=== PATIENT | female | born 1960 | race Caucasian/White ===

== ENCOUNTER 2019-07-05 09:54 | Outpatient (CLI) | payer BC ==
--- NOTE | 2019-07-05 11:16 | ULT ---
EXAM: US Bladder DATE: 07/05/2019 12:00 AM INDICATION: History of urinary urgency COMPARISON: None. FINDING: The prevoid bladder was 106.2 cc. The post void bladder volume was 5 cc. There was total of 101.2 cc of micturated volume. No intraluminal mass is evident. There are bilateral ureteral jets demonstrated. IMPRESSION:Normal exam
== END 2019-07-05 09:55 | disposition home or self-care (01) ==
LOC: SCSULT 09:54
PROVIDERS: ATTEND Student in an Organized Health Care Education/Training Program
DX: R39.15 Urgency of urination (principal)
CPT/HCPCS: 76856